=== PATIENT | male | born 1985 | race Caucasian/White ===

== ENCOUNTER 2017-04-29 20:18 | Emergency (ER) | payer SELFPAY ==
[~2017-04-29] VITALS: Ht 185.4 cm; Wt 90.9 kg
[~2017-04-29 20:18] MED LIST: NO HOME MEDICATIONS
[2017-04-29 20:25] VITALS: BP 132/87; TEMP 98.5
[2017-04-29] MEDS ORDERED: AMOXICILLIN 8751 TAB PO (21:52)
[2017-04-29 22:28] VITALS: PULSE 79
== END 2017-04-29 22:33 | disposition home or self-care (01) ==
LOC: COL.ER 20:18
DX: S61.551A Open bite of right wrist, initial encounter (principal); W54.0XXA Bitten by dog, initial encounter; Y92.009 Unspecified place in unspecified non-institutional (private) residence as the place of occurrence of the external cause